=== PATIENT | male | born 1960 | race Hispanic/Latino ===

== ENCOUNTER 2018-09-26 17:36 | Emergency (ER) | payer SELFPAY ==
[~2018-09-26 17:36] MED LIST: Sodium Chloride Irrig Solution 250 ML BOT ONE
[2018-09-26] MEDS ORDERED: Lidocaine 1% w/Epinephrine 1:100K 30 ML VIAL ONE (18:05)
--- NOTE | 2018-09-26 18:21 | CT ---
FCT brain noncontrast: HISTORY: 57-year-old male status post acute head trauma. FINDINGS: There is no evidence of acute intra-axial or extra-axial hemorrhage. No mass effect, midline shift, o r extra-axial fluid collection. No evidence of obstructive hydrocephalus. Calvarium is intact. IMPRESSION: 1. No acute intracranial findings. 2. Acute, traumatic left upper parietal superficial soft tissue scalp laceration.
== END 2018-09-26 18:47 | disposition home or self-care (01) ==
LOC: MADERS 17:36
DX: S01.01XA Laceration without foreign body of scalp, initial encounter (principal); F17.210 Nicotine dependence, cigarettes, uncomplicated; Z79.82 Long term (current) use of aspirin; V86.59XA Driver of other special all-terrain or other off-road motor vehicle injured in nontraffic accident, initial encounter
CPT/HCPCS: 12004; 70450; J2001

== ENCOUNTER 2018-10-04 19:31 | Emergency (ER) | payer SELFPAY | END 2018-10-04 19:46 | disposition home or self-care (01) | LOC: MADERS 19:31 | DX: S01.01XD Laceration without foreign body of scalp, subsequent encounter (principal); F17.210 Nicotine dependence, cigarettes, uncomplicated; Z79.82 Long term (current) use of aspirin; X58.XXXA Exposure to other specified factors, initial encounter ==